=== PATIENT | female | born 1975 | race Asian ===

== ENCOUNTER 2018-12-26 09:05 | Emergency (ER) | payer BC ==
--- OUTSIDE RECORDS SUMMARY | 2018-12-26 09:12 | XMS REPORT | Continuity of Care Document ---
:1975 External Reference #:[id number] Author Name Rey Arnold MD Address [address] [place] [address] Care Team Providers Name Role Phone Osbaldo Salmon MD Care Team Information Ballet Master/Mistress Unavailable Osbaldo Salmon MD Primary Care Physician Unavailable Payers Date Identification Numbers Payment Provider Subscriber Effective: 2015 Policy Number: [id number] [place] Plan Chetan Kimball PayID: [id number] [address] [place] [address] Advance Directives Description No Information Available Problems Description No Active Problems Family History Date Family Member(s) Observation Comments Father Hypercholesterolemia Mother Hypercholesterolemia Social History Type Date Description Comments Sex Unknown Education Highest Level Completed, Master's Degree Marital Status Legal Status: Occupation graphic design at [employer] ETOH Use Occasional Tobacco Use Start: Unknown Patient has never smoked Allergies, Adverse Reactions, Alerts Date Description Reaction Status Severity Comments 10/06/2016 NKDA Active 10/06/2016 Seasonal Active Medications Medication Date Status Form Strength Qnty SIG Indications Ordering Provider Oseltamivir 12/22 Active Capsules 75mg 10cap 1 by mouth J09.x2 Rey Miller /2018 s twice a day Carly schwartz MD Multivitamins 00 Active Capsules 1 po qd Unknown /0000 Vitamin D Active Tablets 2000Unit 1 po qd Unknown /0000 Lo Loestrin Fe Active Tablets 1mg-10 1 by mouth Unknown /0000 mcg / 10 every day mcg Azithromycin 09/16 Hx Tablets 250mg 6tabs take 2 tablets R05 Josefina /2016 by mouth today Hang, - then take 1 IT SECURITY MANAGER 08/23 tablet daily /2017 for next 4 days Triamcinolone 09/13 Hx Cream 0.5% 15gm apply to L20.9 Holly Felipe Acetonide /2016 affected area Matthew, - twice daily ELECTRICAL CALIBRATOR 08/23 for up to days in a row as needed Physical 10/06 Hx treatment and M77.11 [facility] /2015 evaluation of Darrell, - right lateral Afnp-C 10/13 epicondylitis Evening 00/00 Hx Capsules 1 every day Unknown [place] Oil /0000 for breast - pain 10/06 Immunizations CPT Code Status Date Vaccine Lot # [id number] Given 07/22/2017 Influenza Vac, Quadrivalent, Slit Virus, Im Vital Signs Date Vital Result Comment 12/22/2018 1:35pm BP Systolic 92 mmHg BP Diastolic 48 mmHg Heart Rate 64 /min Body Temperature 97.2 F Respiratory Rate 16 /min Height 64.5 inches 5'4.50" Weight 107.50 lb BMI (Body Mass Index) 18.2 kg/m2 10/06/2018 1:59pm BP Systolic 100 mmHg BP Diastolic 68 mmHg Heart Rate 60 /min Body Temperature 98.2 F Respiratory Rate 15 /min Height 64.5 inches 5'4.50" Weight 105.00 lb BMI (Body Mass Index) 17.7 kg/m2 08/23/2018 2:55pm BP Systolic 90 mmHg BP Diastolic 48 mmHg Heart Rate 56 /min Body Temperature 98.8 F Respiratory Rate 16 /min Height 64.5 inches 5'4.50" Weight 105.38 lb BMI (Body Mass Index) 17.8 kg/m2 09/16/2017 4:47pm BP Systolic 116 mmHg BP Diastolic 74 mmHg Heart Rate 72 /min Body Temperature 98.1 F Height 64.5 inches 5'4.50" Weight 106.00 lb BMI (Body Mass Index) 17.9 kg/m2 07/14/2017 10:12am BP Systolic 100 mmHg BP Diastolic 60 mmHg Heart Rate 80 /min Body Temperature 98.6 F Respiratory Rate 16 /min Height 64.5 inches 5'4.50" Weight 104.25 lb BMI (Body Mass Index) 17.6 kg/m2 11/11/2016 9:39am BP Systolic 88 mmHg BP Diastolic 60 mmHg Heart Rate 60 /min Body Temperature 97.2 F Respiratory Rate 12 /min Height 64.5 inches 5'4.50" Weight 102.00 lb BMI (Body Mass Index) 17.2 kg/m2 10/06/2016 9:28am BP Systolic 90 mmHg BP Diastolic 60 mmHg Heart Rate 72 /min Body Temperature 98.0 F Height 64.5 inches 5'4.50" Weight 103.00 lb BMI (Body Mass Index) 17.4 kg/m2 Results Test Date Facility Test Result H/L Range Note Iron And Tibc 07/14/2017 [facility] Iron 392 g/dL 250-450 1 [address] [facility] [place] [address] ) (607)- - Uibc 301 g/dL 131-425 Iron, Serum 91 g/dL 27-159 Iron Saturation 23 % 15-55 Laboratory test 07/14/2017 [facility] TSH 3.210 uIU/mL 0.450-4.[address] [place] [phone] (607)- - CBC With 07/14/2017 [facility] WBC 5.5 x10E3/uL 3.4-10.8 Differential/Platele [address] [place] [phone] (607)- - RBC 4.33 x10E6/uL 3.77-5.28 Hemoglobin 13.3 g/dL 11.1-15.9 Hematocrit 39.6 % 34.0-46.6 MCV 92 fL 79-97 MCH 30.7 pg 26.6-33.0 MCHC 33.6 g/dL 31.5-35.7 RDW 14.3 % 12.3-15.4 Platelets 242 x10E3/uL 150-379 Neutrophils 73 % Lymphs 19 % Monocytes 5 % Eos 2 % Basos 1 % Immature Cells TNP Neutrophils (Absolute) 4.0 x10E3/uL 1.4-7.0 Lymphs (Absolute) 1.1 x10E3/uL 0.7-3.1 Monocytes(Absolute) 0.3 x10E3/uL 0.1-0.9 Eos (Absolute) 0.1 x10E3/uL 0.0-0.4 Baso (Absolute) 0.0 x10E3/uL 0.0-0.2 Immature Granulocytes 0 % Immature Grans (Abs) 0.0 x10E3/uL 0.0-0.1 NRBC TNP Hematology Comments: TNP Laboratory test 07/14/2017 [facility] Mononucleosis Negative Negative 2 finding [address] [facility] Test, [place] [address] ([phone] - Lyme, Western 07/14/2017 [facility] IgG P93 Ab. Absent Blot, Serum [address] [place] [address] (602)- - IgG P66 Ab. Absent IgG P58 Ab. Absent IgG P45 Ab. Absent IgG P41 Ab. Absent IgG P39 Ab. Absent IgG P30 Ab. Absent IgG P28 Ab. Absent IgG P23 Ab. Absent IgG P18 Ab. Absent Lyme IgG WB Interp. Negative 3 IgM P41 Ab. Absent IgM P39 Ab. Absent IgM P23 Ab. Absent Lyme IgM WB Interp. Negative 4 Laboratory test 07/14/2017 [facility] Vitamin B12 599 pg/mL 211-946 finding [address] [place] [address] (797)- - Ferritin, Serum 41 ng/mL 15-150 Comp Metabolic Panel 11/11/2016 [facility] Sodium 137 mmol/L N 133-145 Potassium 4.4 mmol/L N 3.5-5.0 Chloride 101 mmol/L N 101-111 Co2 Carbon Dioxide 32 mmol/L N 22-32 Anion Gap 4 mmol/L N 2-11 Glucose 91 mg/dL N 70-100 Blood Urea Nitrogen 10 mg/dL N 6-24 Creatinine 0.83 mg/dL N 0.51-0.95 BUN/Creatinine Ratio 12.0 N 8-20 Calcium 9.8 mg/dL N 8.6-10.3 Total Protein 8.0 g/dL N 6.4-8.9 Albumin 4.6 g/dL N 3.2-5.2 Globulin 3.4 g/dL N 2-4 Albumin/Globulin Ratio 1.4 N 1-3 Total Bilirubin 0.60 mg/dL N 0.2-1.0 Alkaline Phosphatase 32 U/L Low 34-104 Alt 13 U/L N 7-52 Ast 19 U/L N 13-39 Egfr Non- 75.8 N >60 Egfr 97.4 N >60 5 Lipid Profile (Trig/Chol/HDL) 11/11/2016 [facility] Triglycerides 107 mg/dL N 6 Cholesterol 180 mg/dL N 7 HDL Cholesterol 67.1 mg/dL N 8 LDL Cholesterol 92 mg/dL N 9 Laboratory test 11/11/2016 [facility] TSH (Thyroid Stim 3.24 mcIU/mL N 0.34- 5.60 10 finding Horm) CBC Auto Diff 11/11/2016 [facility] White Blood Count 4.6 10^3/uL N 3.5-10.8 Red Blood Count 4.48 10^6/uL N 4.0-5.4 Hemoglobin 13.6 g/dL N 12.0-16.0 Hematocrit 43 % N 35-47 Mean Corpuscular Volume 95 fL N 80-97 Mean Corpuscular Hemoglobin 30 pg N 27-31 Mean Corpuscular HGB Conc 32 g/dL N 31-36 Red Cell Distribution Width 14 % N 10.5-15 Platelet Count 268 10^3/uL N 150-450 Mean Platelet Volume 8 um3 N 7.4-10.4 Abs Neutrophils 3.2 10^3/uL N 1.5-7.7 Abs Lymphocytes 1.0 10^3/uL N 1.0-4.8 Abs Monocytes 0.3 10^3/uL N 0-0.8 Abs Eosinophils 0 10^3/uL N 0-0.6 Abs Basophils 0.1 10^3/uL N 0-0.2 Abs Nucleated RBC 0 10^3/uL N Granulocyte % 68.9 % N 38-83 Lymphocyte % 22.0 % Low 25-47 Monocyte % 6.9 % N 1-9 Eosinophil % 1.0 % N 0-6 Basophil % 1.2 % N 0-2 Nucleated Red Blood Cells % 0.1 N 1 2 sst 1 lav 2 The sensitivity of Heterophile antibody testing is 80-90%. Danial Hitchcock IgM testing offers higher sensitivity. 3 Positive: 5 of the following Borrelia-specific bands: 18,23,28,30,39,41,45,58, 66, and 93. Negative: No bands or banding patterns which do not meet positive criteria. 4 Note: An equivocal or positive EIA result followed by a negative Western Blot result is considered NEGATIVE. An equivocal or positive EIA result followed by a positive Western Blot is considered POSITIVE by the CDC. Positive: 2 of the following bands: 23,39 or 41 Negative: No bands or banding patterns which do not meet positive criteria. Criteria for positivity are those recommended by CDC/ASTPHLD. p23=Osp C, k80=ywtykxxso Note: Sera from individuals with the following may cross react in the Lyme Western Blot assays: other spirochetal diseases (periodontal disease, leptospirosis, relapsing fever, yaws, and pinta); connective autoimmune (Rheumatoid Arthritis and Systemic Lupus Erythematosus and also individuals with Antinuclear Antibody); other infections (Tappan Spotted Fever; Danial-Hitchcock Virus, and Cytomegalovirus). 5 Because ethnic data is not always readily available, this report includes an eGFR for both -Americans and non- Americans. The National Kidney Disease Education Program (NKDEP) does not endorse the use of the MDRD equation for patients that are not between the ages of 18 and 70, are , have extremes of body size, muscle mass, or nutritional status, or are non- or non-. According to the National Kidney Foundation, irrespective of diagnosis, the stage of the disease is based on the level of kidney function: Stage Description GFR(mL/min/1.73 m(2)) 1 Kidney damage with normal or decreased GFR 90 2 Kidney damage with mild decrease in GFR 60-89 3 Moderate decrease in GFR 30-59 4 Severe decrease in GFR 15-29 5 Kidney failure <15 (or dialysis) 6 Desirable <150 Borderline high 150-199 High 200-499 Very High >500 7 Desirable <200 Borderline high 200-239 High >239 8 Low <40 Desirable: 40-60 High: >60 9 Desirable: <100 mg/dL Near Optimal: 100-129 mg/dL Borderline High: 130-159 mg/dL High: 160-189 mg/dL Very High: >189 mg/dL 10 2 sst's 1 [facility] [id number] Procedures Date Code Description Status 10/17/2018 [id number] Mammogram Completed 10/04/2017 [id number] Mammogram Completed 04/16/2017 [id number] Mammogram Completed 10/15/2016 [id number] Mammogram Completed 10/13/2016 [id number] Mammogram Completed Encounters Type Date Location Provider Dx Diagnosis Office Visit 10/06/2018 Main Office Osbaldo Salmon, Z00.01 Encounter for 2:00p M.D. general adult medical exam w abnormal findings L98.9 Disorder of the skin and subcutaneous tissue, unspecified Z12.39 Encounter for ot screening for malignant neoplasm of breast Office Visit 08/23/2018 3:15p Main Office Yeni Ferrell5.512 Pain in left Andreia, IT SECURITY MANAGER shoulder Office Visit 09/16/2017 4:30p [place] Josefina Mauricio, R05 Cough Office IT SECURITY MANAGER Office Visit 07/14/2017 10:30a [place] Holly Felipe L20.9 Atopic Office Matthew, ROS dermatitis, unspecified R53.83 Other fatigue Office Visit 11/11/2016 10:00a [place] [facility] Osbaldo Bates Z00.00 Encntr for Lilli Salmon general adult medical exam w/o abnormal findings Z82.49 Family hx of ischem heart dis and oth dis of the circ sys N60.02 Solitary cyst of left breast Office Visit 10/06/2016 10:00a Main Office Trcay Ramírez, M77.11 Lateral Afnp-C epicondylitis, right elbow Plan of Treatment 12/22/2018 - Rey Arnold MDJ09.x2 Influenza due to identified novel influenza A virus with other respiratory manifestationsNew Medication: Oseltamivir Phosphate 75 mg - 1 by mouth twice a dayAllComments:~B_~U_ Medication Management~b_~u_ Patient Understands medications she's taking? Yes No Are there Barriers to Adherence? Yes No Has the patient been asked about herbal supplements and therapies, and OTC meds? Yes No
[2018-12-26 09:15] VITALS: BP 100/57
--- NOTE | 2018-12-26 09:34 | UC ---
Upper Extremity HPI - HPI Summary HPI Summary: 43 y/o female with no pmh, no prior injuries to R middle finger presents today after slipping and "jamming" finger while cleaning toilet. Patient noted + swelling, no pain, but unable to extend DIP middle R finger with deformity. - History of Current Complaint Chief Complaint: UCUpperExtremity Stated Complaint: FINGER INJURY Time Seen by Provider: 12/26/18 09:19 Hx Obtained From: Patient Hx Last Menstrual Period: on continuous control - 4+ years ago ?: No Onset/Duration: Sudden Onset Severity Initially: Mild Severity Currently: Mild Pain Intensity: 0 Pain Scale Used: 0-10 Numeric Location Of Pain: Is Discrete @ - r middle finger Aggravating Factor(s): Nothing Alleviating Factor(s): Nothing Associated Signs And Symptoms: Positive: Swelling, Redness - Allergies/Home Medications Allergies/Adverse Reactions: Allergies Allergy/AdvReac Type Severity Reaction Status Date / Time No Known Allergies Allergy Verified 12/26/18 09:15 Home Medications: Home Medications Oseltamivir CAP* [Tamiflu CAP*] 75 mg PO BID 12/26/18 [History Confirmed ] PMH/Surg Hx/FS Hx/Imm Hx Previously Healthy: Yes - Surgical History Surgical History: Yes Surgery Procedure, Year, and Place: c-sections x 2 - Family History Known Family History: Positive: None - Social History Alcohol Use: Rare Alcohol Amount: 1 Substance Use Type: None Smoking Status (MU): Never Smoked Tobacco Have You Smoked in the Last Year: No - Immunization History Most Recent Influenza Vaccination: August 2014 Most Recent Tetanus Shot: 11/23/14 Most Recent Pneumonia Vaccination: N/A Review of Systems All Other Systems Reviewed And Are Negative: Yes Neurovascular: Positive: Decreased Sensation Musculoskeletal: Positive: Decreased ROM, Edema Is Patient Immunocompromised?: No Physical Exam Triage Information Reviewed: Yes Appearance: Well-Appearing, No Pain Distress, Well-Nourished Vital Signs: Initial Vital Signs Temp 97.9 F 12/26/18 09:10 Pulse 58 12/26/18 09:10 Resp 14 12/26/18 09:10 BP 100/57 12/26/18 09:10 Pulse Ox 100 12/26/18 09:10 Vital Signs Reviewed: Yes Eyes: Positive: Conjunctiva Clear Musculoskeletal: Positive: Strength Limited @ - unable to extending 5 middle dip , ROM Limited @ - unable to extending 5 middle dip Neurological: Positive: Abnormal Muscle Tone - unable to extending 5 middle dip Psychological Exam: Normal Skin: Positive: Other - mild swelling, redness over DIP R middle finger, SITLT all R finger tips, cap refill < 2 seconds all 5th fingertips Upper Extremity Course/Dx - Course Course Of Treatment: x-ray- neg for fx, finger splint placed, OTCS for comfort , follow up with orthopedics - Differential Dx/Diagnosis Differential Diagnosis/HQI/PQRI: Bursitis, Contusion, Laceration, Strain, Sprain Provider Diagnosis: Strain of finger of right hand Discharge - Sign-Out/Discharge Documenting (check all that apply): Patient Departure All imaging exams completed and their final reports reviewed: Yes - Discharge Plan Condition: Good Disposition: HOME Patient Education Materials: Finger Sprain (ED) Referrals: Osbaldo Salmon MD [Primary Care Provider] - Chris Pavon MD [Medical Doctor] - (Follow up in next 1-3 days ) Additional Instructions: - Leave splint on at all times, may take off for washing hands, showering. - Follow up with orthopedics for further evaluation - Rest, ice elevate - Billing Disposition and Condition Condition: GOOD Disposition: Home
== END 2018-12-26 10:12 | disposition home or self-care (01) ==
LOC: UCEAST 09:05
DX: S66.911A Strain of unspecified muscle, fascia and tendon at wrist and hand level, right hand, initial encounter (principal); W23.0XXA Caught, crushed, jammed, or pinched between moving objects, initial encounter; Y92.9 Unspecified place or not applicable
CPT/HCPCS: 73140; 99212; G0463

== ENCOUNTER 2019-04-04 09:38 | Day surgery (SDC) | payer BC, OTHER ==
--- NOTE | 2019-03-31 10:11 | HP ---
PREOPERATIVE HISTORY AND PHYSICAL: DATE OF SURGERY/ADMISSION: 04/04/19 DATE OF OFFICE VISIT/ENCOUNTER: 03/30/19 ATTENDING SURGEON: Rox Berkowitz MD* (dictated by DEBBI Hill). PROCEDURE: Mallet finger repair, right long finger. HISTORY OF PRESENT ILLNESS: This is a 43-year-old female who suffered a mallet finger of her right middle finger on 12/26/18. She jammed her finger at the base of the toilet while she was cleaning it. She was initially treated by Dr. Pavon and splinted for 6 to 8 weeks with a Stax splint. She started a weaning protocol from the splint with the help of Keenan Lubin, Physical Therapy. The patient is concerned that she has a lot of drooping of the finger that actually seems a bit progressive. She followed up with Dr. Berkowitz recently for a second opinion. She denies any numbness or tingling. In addition to the flexion at the DIP joint, she is developing a bit of hyperextension at the PIP joint consistent with a swan neck deformity. Dr. Berkowitz is recommending surgical intervention at this time to help prevent significant swan neck deformity and to improve the extensor lag at the DIP joint. The patient has consented to proceed. PAST MEDICAL HISTORY: Seasonal allergies. PAST SURGICAL HISTORY: x2. CURRENT MEDICATIONS: Czmp-[id number] medications for seasonal allergies. ALLERGIES: No known drug allergies. FAMILY MEDICAL HISTORY: Hypertension and high cholesterol. SOCIAL HISTORY: The patient is a motion graphics designer, employed at [employer]. She denies tobacco use, recreational drug use and does not drink alcohol. REVIEW OF SYSTEMS: Negative for general, cephalic, cardiovascular, respiratory , GI, , other musculoskeletal, integumentary, endocrine, neurologic, and hematologic symptoms. Infectious Diseases: Negative for MRSA, hepatitis C, HIV. PHYSICAL EXAMINATION GENERAL: Well-developed, well-nourished 43-year-old female in no acute distress. VITAL SIGNS: Height 5 feet 4 inches, weight 107 pounds, pulse rate 74, blood pressure 118/78. HEENT: Normocephalic, atraumatic. Pupils are equal, round, and reactive to light and accommodation. Extraocular movements are intact. Throat is clear. NECK: Supple. No palpable lymph nodes. PULMONARY: Lungs are clear to auscultation bilaterally. No wheezes, rales, or rhonchi. CARDIOVASCULAR: Regular rate and rhythm. S1 and S2. No murmurs, rubs, or gallops. No edema. ABDOMEN: Positive bowel sounds, soft and nontender. NEUROLOGIC: Alert and oriented x3. Cranial nerves II through XII are intact. Sensation is intact to light touch. MUSCULOSKELETAL: On exam of her right hand, she has a flexion deformity of the middle finger DIP joint of about 30 degrees. She is also developing a hyperextension deformity at the PIP joint consistent with a swan neck deformity. She does not active extension at the DIP joint and she could not at this point flex her PIP joint very well. Her skin is intact. Neurovascular function is intact. IMPRESSION: Mallet finger of right middle finger which has healed with significant extensor lag and starting to cause a swan neck deformity. Impression as above. PLAN/RECOMMENDATIONS: The patient is scheduled to undergo a mallet finger repair of the right long finger with Dr. Berkowitz on 04/04/19. She will return to the office 10 days postop for followup and suture removal. A prescription for Ultracet was e-scribed to the patient's pharmacy for postoperative pain management. DEBBI HILL [id number]/[facility] #: [id number] BRIA
[~2019-04-04 09:38] MED LIST: Buffered Lidocaine 1% SYRIN* 1 ML/SYRINGE INTRADERM ONE; Famotidine IV* 10 MG/ML 2 ML (20 mg) IV ONE; Lactated Ringers 1000 ML Bag* 1,000 ML IV SCH
[2019-04-04] MEDS ORDERED: ceFAZolin 2 GM PREMIX in ORs 2 GM/50 ML BAG ONE (10:05)
[2019-04-04] MEDS ORDERED: Famotidine IV* 10 MG/ML 2 ML (20 mg) ONE (10:05)
[2019-04-04] MEDS ORDERED: fentaNYL* 50 MCG/ML 2 ML VIAL (100 MCG VIAL) ONE (10:44)
[2019-04-04] MEDS ORDERED: Midazolam* 1 MG/ML 5 ML VIAL (5 MG) ONE (10:44)
[2019-04-04] MEDS ORDERED: Ketorolac INJ* 30 MG/ML 1 ML VIAL ONE (10:48)
[2019-04-04] MEDS ORDERED: Lidocaine 2% PF * 5 ML VIAL ONE (10:48)
[2019-04-04] MEDS ORDERED: Ondansetron INJ* 2 MG/ML VIAL ONE (10:48)
[2019-04-04] MEDS ORDERED: Propofol* 10 MG/ML 20 ML BTL ONE (10:48)
[2019-04-04] MEDS ORDERED: Lidocaine 1% INJ* 10 MG/ML 30 ML SDV ONE (11:00)
[2019-04-04] MEDS ORDERED: DiMENhydriNATE IV* 50 MG/ML VIAL IV PUSH PRN (11:20)
[2019-04-04] MEDS ORDERED: Naloxone* 0.4 MG/ML 1 ML VIAL IV PRN (11:20)
[2019-04-04] MEDS ORDERED: Acetaminophen TAB* 325 MG PO PRN (11:20)
[2019-04-04 12:43] VITALS: BP 109/84
--- NOTE | 2019-04-04 21:43 | OP ---
DATE OF OPERATION: 04/04/19 [facility] DATE OF : 75 SURGEON: Rox Berkowitz MD INSTRUCTIONAL SPECIALIST: DEBBI Hill. ANESTHESIA: Local MAC. 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 OPERATIVE PROCEDURE: Repair right long finger mallet finger. ESTIMATED BLOOD LOSS: Zero. TOURNIQUET TIME: About 25 minutes. INDICATIONS: Norma is a 43-year-old woman who suffered an injury of right middle finger. She had a mallet finger. She is splinted for 8 weeks but has fairly significant extensor lag of about 30 to 40 degrees despite station installation supervisor splinting. She also started to develop a little bit of swan neck deformity, so she presents for repair of her right long finger mallet finger. DESCRIPTION OF PROCEDURE: The patient was brought to the operating room, was given a sedation anesthetic, and a digital block with 10 cc of 1% plain lidocaine in the skin of his right hand and forearm was prepped and draped in usual sterile fashion. The hand and forearm were exsanguinated and tourniquet elevated to 250 mmHg. A Tourni-Cot was placed on the finger to exsanguinate and act as a tourniquet. An H shaped incision was made on the dorsal aspect of the DIP joint. We dissected sharply down to the extensor tendon. It was incised off of its insertion on the distal phalanx and then the distal phalanx was debrided down to the cortical bone. A hole was drilled for a micro Mitek suture anchor and the anchor was placed. Next the joint was brought in full extension and secured with a single 0.035 inch K-wire driven across the joint from the distal phalanx into the middle phalanx. The sutures were then passed through the extensor tendon and tied down and this was reinforced with additional 4-0 Ethibond suture. The wound was irrigated and the skin edges were reapproximated with 4-0 nylon suture. The wound was dressed with Xeroform , 4 x 4, Webril, and an Alumafoam splint. The patient tolerated the procedure well. She was brought to the recovery room in good condition. [id number]/[facility] #: [id number] [facility]
== END 2019-04-04 12:54 | disposition home or self-care (01) ==
LOC: OREAST 09:38
PROVIDERS: ATTEND Orthopaedic Surgery
DX: M20.011 Mallet finger of right finger(s) (principal)
CPT/HCPCS: 76000; 81025; C1776; J0690; J1885; J2250; J2405; J2704; J3010